=== PATIENT | female | born 1995 | race Caucasian/White ===

== ENCOUNTER 2017-09-08 14:45 | Emergency (ER) | payer BC ==
[2017-09-08 15:24] VITALS: BP 107/65
--- NOTE | 2017-09-08 15:38 | UC ---
UC General HPI - HPI Summary HPI Summary: Per data specialist "left upper abd/rib area pain x4 days, wraps slightly around the left side, "feels a bump" below left breast, pain shoots down into lower abdomen ; no N/V/D, no known fever" -Today is 4th day of constant LUQ pain. sharp w/ constant pain at 5 of 10 butr worsens when she gets sharp pangs that lastseconds. no melena or BRBPR. -she is 5 wks post-. denies . -not on OCP. no personal or Fhx of blood clots. -she is concerned about her heart and wants to make sure it's not her heart. -denies f/c. -she does admit that she has been constipated. + BM today, but no relief. not large. nml color. -not nursing. -no trauma or injury to her LUQ or ribs. no falls. -no radiation to her back. some radiation down LLQ and epigastrum at times. -no hematuria or dysuria. - History of Current Complaint Chief Complaint: UCAbdominalPain Stated Complaint: LEFT SIDED PAIN - RIB AREA Time Seen by Provider: 09/08/17 15:26 Hx Last Menstrual Period: 5 weeks post Pain Intensity: 5 - Allergy/Home Medications Allergies/Adverse Reactions: Allergies Allergy/AdvReac Type Severity Reaction Status Date / Time No Known Allergies Allergy Verified 09/08/17 15:24 Home Medications: Home Medications NK [No Home Medications Reported] 09/08/17 [History Confirmed 09/08/17] PMH/Surg Hx/FS Hx/Imm Hx Previously Healthy: Yes - Surgical History Surgical History: Yes Surgery Procedure, Year, and Place: eye/ tear duct as infant. wisdom teeth - Family History Known Family History: Positive: Cardiac Disease - GM - Social History Alcohol Use: Rare Substance Use Type: None Smoking Status (MU): Former Smoker Review of Systems Constitutional: Negative Skin: Negative Eyes: Negative ENT: Negative Respiratory: Negative Cardiovascular: Negative Gastrointestinal: Abdominal Pain Genitourinary: Negative Motor: Negative Neurovascular: Negative Musculoskeletal: Negative Neurological: Negative Psychological: Negative Is Patient Immunocompromised?: No All Other Systems Reviewed And Are Negative: Yes Physical Exam Triage Information Reviewed: Yes Appearance: Well-Appearing, No Pain Distress, Well-Nourished - has her 5 wk old dtr with her. Vital Signs: Initial Vital Signs Temp 97.5 F 09/08/17 15:16 Pulse 77 09/08/17 15:16 Resp 17 09/08/17 15:16 BP 107/65 09/08/17 15:16 Pulse Ox 100 09/08/17 15:16 Vital Signs Reviewed: Yes Eye Exam: Normal - no jaundice. ENT: Positive: Pharynx normal, TMs normal Dental Exam: Normal Neck exam: Normal Neck: Positive: Supple, Nontender, No Lymphadenopathy Respiratory: Positive: Chest non-tender, Lungs clear, Normal breath sounds, No respiratory distress, No accessory muscle use, Respiratory distress Cardiovascular Exam: Normal Cardiovascular: Positive: RRR, No Murmur, Pulses Normal Abdomen Description: Positive: Soft, Other: - LUQ tenderness only with deep palpation of LUQ. no rib tenderess.. Negative: CVA Tenderness (R), CVA Tenderness (L), Distended, Guarding, Peritoneal Signs, Pulsatile Mass, Splenomegaly Bowel Sounds: Positive: Present Musculoskeletal Exam: Normal Neurological Exam: Normal Psychological Exam: Normal Skin Exam: Normal Course/Dx - Course Course Of Treatment: 2 view xray of abd to eval for stool - personal view of images reveals moderate to significant amt of stool throughout colon, particularly splenic flexure and desc colon. -consideration for CT abd/pelvis for diverticulitis. but no fevers and young age make it less likely. She prefers to wait on CT as we did discuss the radiation exposure that goes along w / CT. She is very agreeable to go to ER if symptoms worsen, persist or develops fever. -She understood me well and is very agreeable w/ plan. - Differential Dx - Multi-Symptom Differential Diagnoses: Other - constipation, diverticulitis Provider Diagnoses: constipation, LUQ pain Discharge - Sign-Out/Discharge Documenting (check all that apply): Discharge/Admit/Transfer - Discharge Plan Condition: Stable Disposition: HOME Patient Education Materials: Constipation (ED) Referrals: No Primary Care Phys,NOPCP [Primary Care Provider] - Jennifer Medeiros [Nurse Practitioner] - 4 Days Additional Instructions: -We talked about the importance of getting adequate water intake to help prevent constipation. You should try to get 64 oz of water daily. -Youl should take your miralax 1 -2 capfuls daily -You can also take OTC docusate/sennoside 1 pill 1-2 times per day for the constipation. -You should go to the ER if pain worsens or you develop a fever as you may need a CT. - Billing Disposition and Condition Condition: STABLE Disposition: HOME
--- NOTE | 2017-09-08 16:29 | RAD ---
INDICATION: Left upper quadrant pain in a woman 5 weeks . COMPARISON: Upper GI dated February 22, 2016 TECHNIQUE: Supine and upright views of the abdomen were obtained. FINDINGS: The small bowel and colon appear nondistended. No free intraperitoneal air is seen. No grossly abnormal or pathologic appearing calcifications are noted. Visualized bones are within normal limits for the patient's age. IMPRESSION: Normal abdominal radiograph.
== END 2017-09-08 17:07 | disposition home or self-care (01) ==
LOC: UCCORT 14:45
DX: K59.00 Constipation, unspecified (principal); R10.12 Left upper quadrant pain; Z87.891 Personal history of nicotine dependence
CPT/HCPCS: 74019; 99211; G0463

== ENCOUNTER 2018-10-28 21:18 | Emergency (ER) | payer BC ==
[2018-10-28] MEDS ORDERED: Tetan/Diph/Pertus SYR(Tdap)* 0.5 ML SYR(BOOSTRIX) use SYR IM ONE (21:32)
[2018-10-28] MEDS ORDERED: Cephalexin CAP* 500 MG PO ONE (21:32)
[2018-10-28 21:39] VITALS: BP 133/84
--- NOTE | 2018-10-28 21:43 | UC ---
Skin Complaint HPI - History of Current Complaint Time Seen by Provider: 10/28/18 21:32 Stated Complaint: LEFT LEG LAC Hx Obtained From: Patient Hx Last Menstrual Period: 5 weeks post Onset/Duration: Sudden Onset, Lasting Days Skin Exposure Onset/Duration: Days Ago Timing: Constant Onset Severity: Mild Current Severity: Mild Location: Discrete Character: Redness, Painful - Allergy/Home Medications Allergies/Adverse Reactions: Allergies Allergy/AdvReac Type Severity Reaction Status Date / Time No Known Allergies Allergy Verified 10/28/18 21:30 PMH/Surg Hx/FS Hx/Imm Hx Previously Healthy: Yes - Surgical History Surgical History: Yes Surgery Procedure, Year, and Place: eye/ tear duct as infant. wisdom teeth - Family History Known Family History: Positive: Cardiac Disease - GM - Social History Alcohol Use: Rare Substance Use Type: None Smoking Status (MU): Former Smoker Review of Systems All Other Systems Reviewed And Are Negative: Yes Skin: Positive: Other - scabbed wound to lower left leg Is Patient Immunocompromised?: No Physical Exam Triage Information Reviewed: Yes Appearance: Well-Appearing, Well-Nourished, Pain Distress Vital Signs Reviewed: Yes Eye Exam: Normal ENT Exam: Normal Dental Exam: Normal Neck exam: Normal Respiratory Exam: Normal Respiratory: Positive: Chest non-tender, Lungs clear, Normal breath sounds Cardiovascular Exam: Normal Cardiovascular: Positive: RRR, No Murmur, Pulses Normal Abdominal Exam: Normal Musculoskeletal Exam: Normal Neurological Exam: Normal Psychological Exam: Normal Skin: Positive: Other - 2 inch scabbed cut ot back of left leg. slighty erythemic periwound Course/Dx - Course Course Of Treatment: hx obtained, exam performed ,meds reviewed, given first dose of ABX - Diagnoses Provider Diagnosis: Infected wound Discharge - Sign-Out/Discharge Documenting (check all that apply): Patient Departure All imaging exams completed and their final reports reviewed: No Studies - Discharge Plan Condition: Stable Disposition: HOME Prescriptions: Cephalexin CAP* [Keflex CAP*] 500 mg PO BID #[id number] cap Patient Education Materials: Wound Infection (DC) Referrals: Jennifer Medeiros [Primary Care Provider] - Additional Instructions: 1. take the medication as prescribed. 2. Follow up if not improving. 3. you did not receive a tetanus today, usually thery are given with . - Billing Disposition and Condition Condition: STABLE Disposition: Home
== END 2018-10-28 21:44 | disposition home or self-care (01) ==
LOC: UCCORT 21:18
DX: S81.812A Laceration without foreign body, left lower leg, initial encounter (principal); L08.9 Local infection of the skin and subcutaneous tissue, unspecified; X58.XXXA Exposure to other specified factors, initial encounter; Y92.9 Unspecified place or not applicable; Z87.891 Personal history of nicotine dependence
CPT/HCPCS: 99212; A9270-GY; G0463